=== PATIENT | male | born 1960 | race Caucasian/White ===

== ENCOUNTER 2022-02-03 04:12 | Day surgery (SDC) | payer BC ==
[2022-02-02 10:34] VITALS: BMI 31.1
[2022-02-03] MEDS ORDERED: FENTANYL CITRATE/PF 50 MCG/ML VIAL ONE (07:25)
[2022-02-03] MEDS ORDERED: MIDAZOLAM HCL 2 MG/2 ML SINGLE DOSE VIAL ONE (07:25)
[2022-02-03] MEDS ORDERED: ROCURONIUM BROMIDE 50 MG/5 ML SYRINGE ONE (07:34)
[2022-02-03] MEDS ORDERED: PROPOFOL 20 ML ONE ×2 (07:34→09:31)
[2022-02-03] MEDS ORDERED: LIDOCAINE HCL/PF 2% SDV 5ML VIAL ONE (07:37)
[2022-02-03] MEDS ORDERED: ceFAZolin SODIUM 1 GM VIAL ONE (08:04)
[2022-02-03] MEDS ORDERED: ceFAZolin 2 GRAM PREMIX BAG IVPB ONE (08:10)
[2022-02-03] MEDS ORDERED: LIDOCAINE HCL 1%, 10 MG/ML (20ML VIAL) INF ONE ×2 (08:19)
[2022-02-03] MEDS ORDERED: BUPIVACAINE HCL/PF 0.5% (5MG/ML) 10 ML VIAL IJ ONE (08:19)
[2022-02-03] MEDS ORDERED: SUGAMMADEX SODIUM 200 MG/2 ML VIAL ONE (08:57)
[2022-02-03] MEDS ORDERED: ONDANSETRON 4 MG/2 ML VIAL IVPUSH PRN (09:05)
[2022-02-03] MEDS ORDERED: oxyCODONE HCL 5 MG TABLET PO PRN (09:05)
[2022-02-03] MEDS ORDERED: FENTANYL CITRATE/PF 50 MCG/ML VIAL IVPUSH PRN (09:05)
[2022-02-03] MEDS ORDERED: LACTATED RINGERS SOLUTION 1,000 ML IV SCH (09:15)
[2022-02-03] MEDS ORDERED: GLYCOPYRROLATE 0.2 MG/1 ML VIAL ONE (09:28)
[2022-02-03] MEDS ORDERED: NEOSTIGMINE METHYLSULFATE 0.5 MG/ML - 10 ML MDV ONE (09:28)
[2022-02-03] MEDS ORDERED: KETOROLAC TROMETHAMINE 30 MG/1 ML VIAL ONE (09:29)
[2022-02-03 10:59] VITALS: TEMP 97.5
[2022-02-03 11:09] VITALS: BP 135/79; PULSE 68; RESP 18
== END 2022-02-03 12:35 | disposition home or self-care (01) ==
LOC: JASU-SURG 04:12
PROVIDERS: ATTEND Surgery
PROC: 0DQV0ZZ Repair Mesentery, Open Approach (ICD-10-PCS; principal; 2022-02-03 08:00)
DX: K40.90 Unilateral inguinal hernia, without obstruction or gangrene, not specified as recurrent (principal)
CPT/HCPCS: 88302-TC; 88304-TC; 94760; C1781